=== PATIENT | female | born 1970 | race African-American/Black ===

== ENCOUNTER 2021-10-30 20:46 | Emergency (ER) | payer OTHER, SELFPAY ==
--- NOTE | ~2021-10-30 | CT_ITS ---
EXAMINATION: CT ABDOMEN AND PELVIS WITHOUT CONTRAST CLINICAL INFORMATION: Left flank pain. COMPARISON: None TECHNIQUE: Multidetector volumetric imaging was performed from the superior aspect of the liver through the pubic symphysis. Sagittal and coronal reformatted images were obtained on the technologist's workstation. This CT examination was performed using dose optimization techniques as appropriate, variously including the following: *Automated exposure control *Adjustment of mA and/or kV according to patient size (this includes techniques or standardized protocols for targeted exams where dose is matched to indication/reason for exam; i.e. extremities or head) *Use of iterative reconstruction technique DLP: 406 mGy-cm FINDINGS: LUNG BASES: The visualized lung bases are unremarkable. LIVER, GALLBLADDER, AND BILIARY TREE: Decreased attenuation of the liver parenchyma suggesting presence of hepatic steatosis. Otherwise, the liver is normal in size and shape without focal abnormalities. The gallbladder is underdistended with no pericholecystic fluid or fat stranding to suspect acute cholecystitis. There is no biliary ductal dilatation. PANCREAS: Unremarkable. SPLEEN: Unremarkable. ADRENAL GLANDS: Unremarkable. KIDNEYS AND URETERS: Mild left hydroureteronephrosis without definite obstructive stone and possibly related with a recently passed calculus. There is mild asymmetric left perinephric fat stranding. No nephrolithiasis. No right hydroureteronephrosis. BLADDER: Unremarkable. GASTROINTESTINAL TRACT: The stomach and small bowel are nondilated. No pericolic inflammatory changes. Mild sigmoid diverticulosis. No bowel obstruction. ABDOMINAL WALL: No significant hernia is appreciated. LYMPH NODES: No lymphadenopathy by size criteria. VASCULAR: Atherosclerotic disease. The abdominal aorta is of normal diameter. PELVIC VISCERA: Hysterectomy. Pelvic phleboliths. OSSEOUS STRUCTURES: No acute or aggressive appearing osseous abnormalities. Mild thoracolumbar spondylosis. CT/CT abdomen pelvis wo con IMPRESSION: Mild left hydroureteronephrosis with mild asymmetric left-sided perinephric fat stranding. No obstructing stones are identified in this examination, and findings could be related with a recently passed stone. Correlate clinically for infection. Mild sigmoid diverticulosis. Hepatic steatosis.
[2021-10-30 22:14] VITALS: BP 145/97; PULSE 91; RESP 20; TEMP 36.7; O2SAT 98; BMI 25.8
[2021-10-30] MEDS: Ibuprofen 600 MG TABLET PO (22:26)
[2021-10-30 22:27] LABS: Basophils Percent Auto 0.2 % (0-2); Eosinophils Percent Auto 0.2 % (0-4); Hematocrit 37.6 % (37.0-47.0); Hemoglobin 12.6 g/dl (12.0-16.0); Imm Gran Abs Auto 0.02 X10*3/uL (0.00-0.03); Imm Gran Pct Auto 0.2 % (0.0-0.4); Lymphocytes Absolute Auto 1.7 X10*3/uL (1.2-4.9); Lymphocytes Percent Auto 17.5 % (20-40); MANUAL DIFF FLAG NO; Mean Corpuscular HGB Conc 33.5 g/dl (31.0-35.0); Mean Corpuscular Hemoglobin 27.4 pg (27.0-33.0); Mean Corpuscular Volume 81.7 fL (80.0-98.0); Mean Platelet Volume 9.4 fL (9.4-12.3); Monocytes Absolute Auto 0.9 X10*3/uL (0.1-1.2); Monocytes Percent Auto 9.9 % (2-11); Neutrophils Absolute Auto 6.8 x10*3/uL (2.0-8.3); Platelet Count 241 X10*3/uL (160-400); Red Cell Distribution Width 13.9 % (11.0-16.0); White Blood Count 9.5 X10*3/uL (4.8-10.8)
[2021-10-30 22:47] LABS: Anion Gap 14 (12-20); Blood Urea Nitrogen 17 mg/dL (9-16); Calcium 9.7 mg/dL (8.4-10.2); Carbon Dioxide 24 mmol/L (22-29); Chloride 108 mmol/L (96-108); Estimated Glomerular Filt Rate 47; Glucose Random 112 mg/dL (60-115); Potassium 4.5 mmol/L (3.3-5.1); Sodium 141 mmol/L (135-145)
[2021-10-30 22:54] LABS: Appearance Urine CLEAR; Color Urine YELLOW; Glucose Urine UA NEG (NEG); Leukocyte Esterase Urine NEG (NEG); Nitrite Urine NEG (NEG); UACC Culture Trigger NO; Urine Blood 2+ (NEG); Urine Ketones NEG (NEG); Urine Protein NEG (NEG-TRACE)
[2021-10-30 23:02] LABS: Bacteria Urine 1+ /LPF; Squamous Epithelial Cell Urine 1+ /LPF
[2021-10-31 02:00] VITALS: BP 112/79; PULSE 78; RESP 15; TEMP 36.7; O2SAT 99
[2021-10-31 04:00] VITALS: RESP 15
--- NOTE | 2021-10-31 04:13 | ED.ABDPAIN ---
HPI - Abdominal Pain General Chief Complaint: Abdominal Pain Stated Complaint: left lank pain Time Seen by Provider: 10/30/21 23:05 Source: patient Mode of arrival: ambulatory Limitations: no limitations History of Present Illness HPI narrative: Patient comes to emergency room complaining of 1 week of left-sided flank pain. Patient states the pain is sharp, intermittent, radiating from the back towards the groin. Patient also having dysuria, denies hematuria. Patient denies fever chills. Related Data Previous Rx's Medication Instructions Recorded ketorolac 10 mg tablet 10 mg PO TID PRN 5 Days #10 tab 10/31/21 phenazopyridine 100 mg tablet 100 mg PO TID PRN 3 Days #5 tab 10/31/21 prednisone 20 mg tablet 20 mg PO DAILY #3 tab 10/31/21 Allergies Allergy/AdvReac Type Severity Reaction Status Date / Time No Known Allergies Allergy Verified 10/30/21 22:17 Review of Systems Review of Systems Constitutional : No Weight loss, No Fever, No Chills, No Night Sweats, No Fatigue, No Malaise ENT/Mouth : No Hearing loss, No Ear Pain, No Nasal Congestion, No Sinus Pain, No Hoarseness, No sore throat, No Rhinorrhea, No Swallowing Difficulty Eyes: No Eye Pain, No Swelling, No Redness, No Foreign Body, No Discharge, No Vision Changes Cardiovascular : No Chest Pain, No SOB, No Dyspnea on Exertion, No Orthopnea, No Edema, No Palpitations Respiratory : No Cough, No Sputum, No Wheezing, No Smoke Exposure, No Dyspnea Gastrointestinal : No Nausea, No Vomiting, No Diarrhea, No Constipation, No abdominal Pain, No Hematochezia, No Melena Genitourinary : no irregular bleeding, complaining of dysuria and urinary frequency, No Hematuria, No Urinary Incontinence, No Urgency, complaining of intermittent left Flank Pain, No Urinary Flow Changes, No Hesitancy Musculoskeletal : No joint pain, No Myalgias, No Joint Swelling Skin : No Skin Lesions, No rash Neuro : No Weakness, No Numbness, No Paresthesias, No Loss of Consciousness, No Dizziness, No Headache Psych : No Anxiety/Panic, No Depression, No SI/HI/AH/VH, No Social Issues, Heme/Lymph: No Bruising, No Bleeding,No Lymphadenopathy Endocrine : No Polyuria, No Polydipsia, No Temperature Intolerance [facility] Past Medical History Medical History Ureterolithiasis Social History Social History Alcohol intake: unknown Patient Tobacco Use Status: Tobacco use Unknown Use of substances other than those prescribed or required for medical reasons: Unknown Advance Directives: No Advance Directives Information Provided: No Physical Exam ED Vital Signs: Vital Signs - 24 hr 10/30/21 22:14 10/31/21 02:00 Temperature 98.1 F 98.1 F Pulse Rate 91 78 Respiratory Rate 20 15 Blood Pressure 145/97 H 112/79 Pulse Oximetry 98 99 BMI result Body Mass Index 25.8 Const Other: Appearance: Alert. Oriented X3. No acute distress. Eyes: Pupils equal, round and reactive to light. ENT: Pharynx normal. Neck: Normal inspection. Neck supple. No lymph nodes noted. No crepitus CVS: Normal heart rate and rhythm. Pulses normal. Normal S1 and S2 Respiratory: No respiratory distress. Breath sounds normal. No Wheezing. No rales Abdomen: Soft and nontender. No rigidity. No distention. Back: No flank pain Skin: Skin warm and dry. Normal skin color. Normal skin turgor. Extremities: No lower extremity edema. No Lacerations. No Rash Neuro: Oriented X 3. No motor deficit. No sensory deficit. Moving all extremities. No slurred speech. CN 2 through 12 grossly intact Psych: calm, cooperative, normal affect Course Course Course Narrative: I discussed the labs and imaging with the patient, no signs of UTI/pyelonephritis. However, it seems that patient recently passed a stone, likely had ureterolithiasis on the left side. At this time, no evidence of obstruction, no stone visualized. Patient was given 1 dose of IM Toradol for discomfort, phenazopyridine. Patient's pain likely secondary to renal colic MDM - Abdominal Pain Lab Data Result diagrams: 10/30/21 22:23 10/30/21 22:22 Labs: Lab Results 10/30/21 10/30/21 10/30/21 Range/Units 22:22 22:23 22:48 WBC 9.5 (4.8-10.8) X10*3/uL RBC 4.60 (4.20-5.50) X10*6/uL Hgb 12.6 (12.0-16.0) g/dl Hct 37.6 (37.0-47.0) % MCV 81.7 (80.0-98.0) fL MCH 27.4 (27.0-33.0) pg MCHC 33.5 (31.0-35.0) g/dl RDW 13.9 (11.0-16.0) % Plt Count 241 (160-400) X10*3/uL MPV 9.4 (9.4-12.3) fL Immature Gran % (Auto) 0.2 (0.0-0.4) % Neut % (Auto) 72.0 (45-73) % Lymph % (Auto) 17.5 L (20-40) % [place] % (Auto) 9.9 (2-11) % Eos % (Auto) 0.2 (0-4) % Baso % (Auto) 0.2 (0-2) % Lymph # (Auto) 1.7 (1.2-4.9) X10*3/uL [place] # (Auto) 0.9 (0.1-1.2) X10*3/uL Eos # (Auto) 0.0 (0.0-0.4) X10*3/uL Baso # (Auto) 0.0 (0.0-0.2) X10*3/uL Abs Immat Gran (auto) 0.02 (0.00-0.03) X10*3/uL Absolute Neuts (auto) 6.8 (2.0-8.3) x10*3/uL Absolute Nucleated RBC 0.000 (0.0-0.012) X10*3/uL Nucleated RBC % (auto) 0.0 (0.0-0.2) /100WBC Sodium 141 (135-145) mmol/L Potassium 4.5 (3.3-5.1) mmol/L Chloride 108 (96-108) mmol/L Carbon Dioxide 24 (22-29) mmol/L Anion Gap 14 (12-20) BUN 17 H (9-16) mg/dL Creatinine 1.20 (0.5-1.4) mg/dL Estim Creat Clear Calc 43.0 Estimated GFR 47 Random Glucose 112 (60-115) mg/dL Calcium 9.7 (8.4-10.2) mg/dL Urine Color YELLOW Urine Appearance CLEAR Urine pH 6.0 (5.0-8.0) Ur Specific [place] 1.010 (1.005-1.025) Urine Protein NEG (NEG-TRACE) MG/DL Urine Glucose (UA) NEG (NEG) MG/DL Urine Ketones NEG (NEG) MG/DL Urine Blood 2+ H (NEG) Urine Nitrite NEG (NEG) Ur Leukocyte Esterase NEG (NEG) Urine RBC 10-14 H (0) /HPF Urine WBC 1-4 (0-4) /HPF Ur Squamous Epith Cells 1+ /LPF Urine Bacteria 1+ /LPF Imaging Data CT scan - abdomen: Radiologist's impression: FINDINGS: LUNG BASES: The visualized lung bases are unremarkable.? LIVER, GALLBLADDER, AND BILIARY TREE: Decreased attenuation of the liver parenchyma suggesting presence of hepatic steatosis. Otherwise, the liver is normal in size and shape without focal abnormalities. The gallbladder is underdistended with no pericholecystic fluid or fat stranding to suspect acute cholecystitis. There is no biliary ductal dilatation. PANCREAS: Unremarkable.? SPLEEN: Unremarkable.? ADRENAL GLANDS: Unremarkable.? KIDNEYS AND URETERS: Mild left hydroureteronephrosis without definite obstructive stone and possibly related with a recently passed calculus. There is mild asymmetric left perinephric fat stranding. No nephrolithiasis. No right hydroureteronephrosis.? BLADDER: Unremarkable.? GASTROINTESTINAL TRACT: The stomach and small bowel are nondilated. No pericolic inflammatory changes. Mild sigmoid diverticulosis. No bowel obstruction.? ABDOMINAL WALL: No significant hernia is appreciated.? LYMPH NODES: No lymphadenopathy by size criteria. VASCULAR: Atherosclerotic disease. The abdominal aorta is of normal diameter. PELVIC VISCERA: Hysterectomy. Pelvic phleboliths.? OSSEOUS STRUCTURES: No acute or aggressive appearing osseous abnormalities. Mild thoracolumbar spondylosis.? CT/CT abdomen pelvis wo con IMPRESSION: Mild left hydroureteronephrosis with mild asymmetric left-sided perinephric fat stranding. No obstructing stones are identified in this examination, and findings could be related with a recently passed stone. Correlate clinically for infection. ? Mild sigmoid diverticulosis. ? Hepatic steatosis. Discharge Plan Discharge Clinical Impression: Kidney stone Patient Disposition: Home, Self-Care Instructions: Kidney Stones (ED), Flank Pain (ED) Additional Instructions: Please follow-up with your primary care physician tomorrow. If you have any worsening or new symptoms, please return to the emergency room or call 911 Prescriptions: New ketorolac 10 mg tablet 10 mg PO TID PRN (Reason: pain) 5 Days Qty: 10 0RF Rx Instructions: Do not use with ibuprofen/naproxen. Only use Tylenol for breakthrough pain. phenazopyridine 100 mg tablet 100 mg PO TID PRN (Reason: pain) 3 Days Qty: 5 0RF prednisone 20 mg tablet 20 mg PO DAILY Qty: 3 0RF Rx Instructions: Start 11/01/2021 Stand Alone Forms: Work/School Release
[2021-10-31] MEDS: Phenazopyridine HCL 100 MG TABLET PO (04:42)
[2021-10-31] MEDS: Ketorolac Tromethamine 60 MG/2 ML VIAL IM (04:42)
[2021-10-31] MEDS: predniSONE 20 MG TABLET PO (04:42)
== END 2021-10-31 05:10 | disposition home or self-care (01) ==
PROVIDERS: Emergency Provider Emergency Medicine
DX: N20.0 Calculus of kidney (principal); R10.9 Unspecified abdominal pain; Z79.899 Other long term (current) drug therapy
CPT/HCPCS: 36415; 74176; 80048; 81001; 85025; 99284; J1885

== ENCOUNTER 2023-03-13 10:00 | Outpatient (AMB) | payer OTHER, SELFPAY ==
--- NOTE | 2023-03-13 10:12 | A.OFFPC_ITS ---
Vital Signs 03/13/23 10:17 Height 4 ft 11 in Weight 134 lb BMI 27.1 BP 122/82 Blood Pressure Location Rt brachial Position Sitting Pulse 85 Pulse Source Pulse Oximeter Pulse Oximetry (%) 99 Oxygen Delivery Method Room Air Intake Visit Reasons: New patient-Requesting physical Intake Note: Pt is here today as a New Patient to est care/ PE Allergies No Known Allergies Allergy (Verified 03/13/23 10:40) Medication List - Last Reconciled 03/13/23 by Iris Becerra MD fexofenadine (Joan Allergy) 180 mg PO DAILY Tobacco use date assessed: 03/13/23 Dental Screening Dental Screen Date: 03/13/23 Did you have a dental visit in the last 12 months?: Yes Did you have a dental problem in the last 6 months where you did not have access to dental care?: No Was dental information given to patient?: Patient has dentist HPI New patient-Requesting physical HPI Details 52-year-old lady, new to practice, here to establish care with new PCP and for physical exam. She has history of kidney stones, currently asymptomatic, takes Joan as needed for nasal congestion/runny nose. Would like to get checked for herpes, as she states that she has been in contact with somebody who has had the disease in the past. Patient denies any skin lesions Complains of nontender lump on right upper lid which has been present now for the last several months, requesting referral to see an control systems technician to get it checked [facility] Medical History (Updated 03/13/23 @ 11:23 by Iris Becerra MD) Cutaneous skin tags Environmental and seasonal allergies Exposure to herpes History of LEEP (loop electrosurgical excision procedure) of cervix complicating History of spontaneous History of uterine fibroid Hordeolum externum right upper eyelid Hx of ectopic Irritable bowel syndrome with diarrhea Myopia Trigger finger, acquired Ureterolithiasis Surgical History (Updated 03/13/23 @ 11:13 by Iris Becerra MD) History of partial hysterectomy Hx of colonoscopy Family History (Updated 03/13/23 @ 11:16 by Iris Becerra MD) Brother Substance use disorder Mental health disorder Alcoholism Father Diabetes mellitus Hyperlipidemia Essential hypertension Mother Hyperlipidemia Essential hypertension Paternal Grandmother Diabetes mellitus Paternal Aunt Ovarian cancer Social History Housing: House Alcohol intake: unknown Patient Tobacco Use Status: Current everyday Tobacco user e-Cigarette/Vaping Use: Currently Using service: No Current occupational status: employed Cognitive needs: No Hearing needs: No Vision needs: Yes Female Reproductive History Menstrual Age of Menarche: 9 Menopause type: surgical Age of menopause: 43 Questionnaire PHQ-9 Over the last 2 weeks, how often have you been bothered by any of the following problems? 1. Little interest or pleasure in doing things: not at all 2. Feeling down, depressed, or hopeless: not at all 3. Trouble falling or staying asleep, or sleeping too much: several days 4. Feeling tired or having little energy: several days 5. Poor appetite or overeating: not at all 6. Feeling bad about yourself - or that you are a failure or have let yourself or your family down: not at all 7. Trouble concentrating on things, such as reading the newspaper or watching television: not at all 8. Moving or speaking so slowly that other people could have noticed. Or the opposite - being so fidgety or restless that you have been moving around a lot more than usual: not at all 9. Thoughts that you would be better off or of hurting yourself in some way: not at all Total score: 2 Depression Screening Interpretation: Negative 62518 - PHQ-9 Billing: Yes Source: Developed by Drs. Xavi Summers, Niyah Garcia, Edward Armas and colleagues, with an educational murray from [employer]. Thrive Questionnaire Date Thrive assessed: 03/13/23 I am a: Patient What is your living situation today?: I have a steady place to live Within the past 12 months, did the food you bought not last and you didn't have the money to get more?: Never true Within the past 12 months, did you worry whether your food would run out before you got money to buy more?: Never true Do you have trouble paying for medicines?: No Do you have trouble getting transportation to medical appointments?: No Do you have trouble paying your heating and electricity bill?: No Do you have trouble taking care of your child, family member or friend?: No Do you have trouble with day-to-day activities such as bathing, preparing meals, shopping, managing finances, etc.?: No Are you currently unemployed and looking for a job?: No Are you interested in more education?: No AUDIT C Alcohol Use Questionnaire (AUDIT-C) 1. How often do you have a drink containing alcohol?: Monthly or less 2. How many drinks containing alcohol do you have on a typical day when you are drinking?: 1 or 2 3. How often do you have six or more drinks on one occasion?: Never Total Score: 1 JONY-7 AMB Questionnaire JONY-7 Date JONY - 7 assessed: 03/13/23 Feeling nervous, anxious, or on edge: 0 = Not at all Not being able to stop or control worryin = Not at all Worrying too much about different things: 0 = Not at all Trouble relaxin = Not at all Being so restless that it is hard to sit still: 0 = Not at all Becoming easily annoyed or irritable: 0 = Not at all Feeling afraid as if something awful might happen: 0 = Not at all Total JONY-7 score (0-4 normal; 5-9 mild; 10-14 moderate; 15-21 severe): 0 Source: Developed by Drs. Xavi Summers, Niyah Garcia, Edward Armas and colleagues, with an educational murray from [employer]. JONY-7 Assessment Billing JONY-7 Assessment Tool: JONY-7 Assessment 73683 Review of Systems Const Denies body aches, Denies fatigue, Denies fever(s), Denies headache(s) and Denies weakness Eyes Denies change in vision, Denies eye discharge and Denies itchy eyes ENT Denies dizziness, Denies headache(s), Denies nasal congestion, Denies nasal discharge and Denies sore throat Card Denies chest pain, Denies lightheadedness, Denies palpitations and Denies dyspnea Resp Denies chest congestion, Denies cough, Denies dyspnea and Denies wheezing GI Denies abdominal pain, Denies change in bowel habits and Denies heartburn Denies hematuria, Denies urinary frequency, Denies dysuria and Denies urinary urgency Musc Reports no additional complaints Skin/Breast Denies breast pain, Denies breast mass, Denies lesions and Denies rash Neuro Denies dizziness, Denies headache(s) and Denies weakness Psych Reports no additional complaints Endo Denies fatigue, Denies polydipsia, Denies polyuria and Denies palpitations Kamari/Lymph Denies easy bruising Aller/Immun Denies itchy eyes, Denies seasonal rhinorrhea and Denies wheezing Physical exam (Primary Care) Vital Signs: Last Vital Signs Pulse 85 03/13/23 10:17 BP 122/82 03/13/23 10:17 Pulse Ox 99 03/13/23 10:17 Oxygen Delivery Method Room Air 03/13/23 10:17 BMI result Body Mass Index 27.1 Tobacco/Smoking Status: Tobacco use Status Tobacco use date assessed 03/13/23 03/13/23 10:18 Patient Tobacco Use Status Current everyday Tobacco 03/13/23 10:37 e-Cigarette/Vaping Use Currently Using 03/13/23 10:37 PHQ-9: PHQ-9 Score PHQ-9: Total score 2 03/13/23 11:29 Depression Screening Interpretation: Negative Thrive Assessment: Date of Thrive Assessment Date Thrive assessed 03/13/23 03/13/23 10:37 Const General: healthy appearing, comfortable and no acute distress Nutritional Appearance: average body habitus Orientation/consciousness: patient oriented x3 Limitations: no limitations HENMT Head: Yes normocephalic and Yes atraumatic Ears: external ears normal, TM's normal bilaterally and EAC's normal General nose exam: Normal external nose present Face and sinus: Yes face symmetric Mouth: Normal oral and palatal mucosa present, tongue normal, oropharynx normal and moist mucous membranes Eyes Other: Slightly raced mass on upper lid, right, nontender to palpation General: appearance normal, both eyes and all related structures Alignment and Position: alignment normal Conjunctivae: conjunctivae normal Sclerae: sclerae normal Pupils: Equal, round and reactive pupils present EOM: EOMs intact bilaterally Neck Neck: Yes full ROM, Yes no lymphadenopathy and Yes supple Thyroid: other (Nonpalpable thyroid) Chest Chest palpation & inspection: normal inspection of the chest Breast/axilla inspection: normal inspection of the breasts Breast/axilla palpation: normal palpation of the breasts Resp Effort & Inspection: normal respiratory effort and able to speak in complete sentences Auscultation: clear to auscultation bilaterally Cardio Rate: regular rate Rhythm: regular rhythm Heart sounds: S1 normal heart sound present and S2 normal heart sound present GI Inspection: Yes obesity Palpation (GI): Soft to palpation, nontender, no guarding and no masses Auscultation: normal bowel sounds General: Yes no CVA tenderness Back/Spine/Pelvis Back: no CVA tenderness and No back tenderness Skin Other: Skin tags on neck General skin exam: no rashes or lesions noted Neuro General: patient oriented x3, gait normal, tone normal, moves all extremities, Normal light touch and pain sensation, no focal motor deficits and CN's II-XI intact bilaterally Cranial nerves: Yes Equal, round and reactive pupils present Cognition (Neuro): normal cognition Gait exam (Neuro): Normal gait present Motor exam (neuro): 5/5 motor strength present throughout Psych Appearance: grossly normal and well kempt Mental Status: mental status grossly normal Speech and movement: Normal speech and movement present Affect: normal affect Attitude: cooperative Thought process: Normal thought process present Thought content: Normal thought content present Assessment and Plan Assessment & Plan (1) Environmental and seasonal allergies: Code(s): J30.89 - Other allergic rhinitis Plan: Currently taking fexofenadine as needed (2) Annual visit for general adult medical examination with abnormal findings: Code(s): Z00.01 - Encounter for general adult medical examination with abnormal findings Plan: Will check appropriate labs. Recommended dental visit every 6 months and regular eye exams, at least every 2 years. Take adequate calcium in diet and vitamin-D 3 at 2000 IU per cap once a day, in addition to weight-bearing exercises to help maintain good muscle tone and weight control. Instructed to do self-breast exam, and recommended to get yearly mammogram, referred for screening mammogram. She has had her COVID vaccines but has but reminded to get her booster, as well as her shingles vaccination, gets yearly flu shots, and up-to-date with Tdap. Patient also states that she had a screening colonoscopy done in [place] in 2018 which came back benign (3) Irritable bowel syndrome with diarrhea: Code(s): K58.0 - Irritable bowel syndrome with diarrhea Plan: Increase diet Monika fiber intake, get regular exercise. (4) Fatigue: Code(s): R53.83 - Other fatigue Plan: Will check CBC, TSH and free T4, vitamin-D level and electrolytes (5) Exposure to herpes: Code(s): Z20.828 - Contact with and (suspected) exposure to other viral communicable diseases Plan: Will check herpes simplex virus antibodies (6) Cutaneous skin tags: Code(s): L91.8 - Other hypertrophic disorders of the skin Plan: Referred to general surgery for possible excision of painful skin tags on neck (7) Hordeolum externum right upper eyelid: Code(s): H00.011 - Hordeolum externum right upper eyelid Plan: Referred to ophthalmology (8) Myopia: Code(s): H52.10 - Myopia, unspecified eye Plan: Referred to ophthalmology Orders: Orders Alanine Aminotransferase 03/13/23 J30.89 - Other allergic rhinitis, Z00.01 - Encounter for general adult medical examination with abnormal findings Aspartate Amino Transferase 03/13/23 J30.89 - Other allergic rhinitis, Z00. - Encounter for general adult medical examination with abnormal findings Basic Metabolic Panel Fasting 03/13/23 J.89 - Other allergic rhinitis, Z00. - Encounter for general adult medical examination with abnormal findings Lipid Panel 03/13/23.89 - Other allergic rhinitis, Z00. - Encounter for general adult medical examination with abnormal findings Vitamin D 25-OH Total 03/13/23.89 - Other allergic rhinitis, Z00. - Encounter for general adult medical examination with abnormal findings UA CC w/rflx Micro + Cult 03/13/23. - Other allergic rhinitis, Z00.01 - Encounter for general adult medical examination with abnormal findings MM screening mammo BI 03/13/23 Z12.31 - Encounter for screening mammogram for malignant neoplasm of breast TSH reflex Free T4 03/13/23 K58.0 - Irritable bowel syndrome with diarrhea, R53.83 - Other fatigue Herpes Simplex Virus Ab IgG 03/13/23 Z20.828 - Contact with and (suspected) exposure to other viral communicable diseases Referrals General Surgery Referral L91.8 - Other hypertrophic disorders of the skin Ophthalmology Referral H00.011 - Hordeolum externum right upper eyelid, H52.10 - Myopia, unspecified eye Coding Level of Care Code New Pt Prev Care 40-64y(98143) Diagnoses Environmental and seasonal allergies J30.89 Annual visit for general adult medical examination with abnormal findings Z00.01 Irritable bowel syndrome with diarrhea K58.0 Fatigue R53.83 Exposure to herpes Z20.828 Cutaneous skin tags L91.8 Hordeolum externum right upper eyelid H00.011 Myopia H52.10 Additional Codes JONY-7 Assessment Billing - JONY-7 Assessment Tool: JONY-7 Assessment [id number] ([id number])
[2023-03-13 10:17] VITALS: BP 122/82; PULSE 85; O2SAT 99; BMI 27.1
== END 2023-03-13 11:41 | disposition home or self-care (01) ==
PROVIDERS: Visit Provider Internal Medicine
DX: J30.89 Other allergic rhinitis (principal); Z00.01 Encounter for general adult medical examination with abnormal findings; K58.0 Irritable bowel syndrome with diarrhea; R53.83 Other fatigue; Z20.828 Contact with and (suspected) exposure to other viral communicable diseases; L91.8 Other hypertrophic disorders of the skin; H00.011 Hordeolum externum right upper eyelid; H52.10 Myopia, unspecified eye
CPT/HCPCS: 99386

== ENCOUNTER 2023-03-19 07:47 | Outpatient (REF) | payer OTHER, SELFPAY ==
[2023-03-19 11:30] LABS: Appearance Urine Turbid; Color Urine Yellow; Glucose Urine UA Negative (Negative); Leukocyte Esterase Urine Negative (Negative); Nitrite Urine Negative (Negative); PH 5.5 (5.0-9.0); Specific Gravity - Urine 1.025 (1.005-1.025); Urine Blood Negative (Negative); Urine Ketones Negative (Negative); Urine Protein Negative (Neg-Trace)
[2023-03-19 12:10] LABS: Alanine Aminotransferase 25 U/L (0-31); Anion Gap 16 (12-20); Aspartate Amino Transferase 20 U/L (5-31); Blood Urea Nitrogen 11 mg/dL (9-16); Calcium 9.8 mg/dL (8.4-10.2); Carbon Dioxide 22 mmol/L (22-29); Chloride 109 mmol/L (96-108); Cholesterol 278 mg/dL; Estimated Glomerular Filt Rate > 60; Glucose Fasting 101 mg/dL (60-99); HDL Cholesterol 41 mg/dL; LDL Cholesterol Calculated 184 mg/dl; Potassium 4.6 mmol/L (3.3-5.1); Sodium 142 mmol/L (135-145); Triglycerides 268 mg/dL
[2023-03-19 12:32] LABS: Vitamin D 25-OH Total 20.3 ng/mL (>30)
== END 2023-03-19 07:48 | disposition home or self-care (01) ==
LOC: HO.HMGCLDS 07:47
PROVIDERS: PCP Internal Medicine; Visit Provider Internal Medicine
DX: Z00.01 Encounter for general adult medical examination with abnormal findings (principal); J30.89 Other allergic rhinitis; K58.0 Irritable bowel syndrome with diarrhea; R53.83 Other fatigue; Z20.828 Contact with and (suspected) exposure to other viral communicable diseases
CPT/HCPCS: 36415; 80048; 80061; 81003; 82306; 84443; 84450; 84460; 86695; 86696

== ENCOUNTER 2023-03-27 09:22 | Outpatient (AMB) | payer OTHER, SELFPAY ==
--- NOTE | 2023-03-27 09:27 | MHC.OFFVIS ---
Intake Vital Signs 03/27/23 09:35 Height 4 ft 11 in Weight 136 lb 2 oz BMI 27.5 BP 137/80 Blood Pressure Location Lt brachial Position Sitting Pulse 84 Intake Visit Reasons: skin lesion of the neck Intake Note: Patient is seen in office for evaluation of a skin lesion of the neck. Pt c/o: onset for yrs, had multiple in the past that been removed (benign), admits to discharge, denies discharge, redness, discoloration Correspondence Specialist Required: No Accompanied by: Other Relationship Allergies No Known Allergies Allergy (Verified 03/27/23 09:34) Medication List - Last Reconciled 03/27/23 by Quique Jurado MD cholecalciferol (vitamin D3) 1,250 mcg PO QWEEK 3 months fexofenadine ([facility]) 180 mg PO DAILY rosuvastatin 5 mg PO DAILY HPI HPI Comments History of Present Illness Details 52-year-old female patient presenting with an irritated skin lesion located on the left neck which is causing increased pain. She denies bleeding or discharge but feels the lesion is increasing in size changing in color. She has requested excision of this irritated lesion. She has several smaller lesions on the right neck which have also started to increase in size and causing mild discomfort. [facility] Medical History Cutaneous skin tags Environmental and seasonal allergies Exposure to herpes History of LEEP (loop electrosurgical excision procedure) of cervix complicating History of spontaneous History of uterine fibroid Hordeolum externum right upper eyelid Hx of ectopic Impaired fasting glucose Irritable bowel syndrome with diarrhea Mixed dyslipidemia Myopia Trigger finger, acquired Ureterolithiasis Vitamin D deficiency Surgical History History of partial hysterectomy Hx of colonoscopy Family History Brother Substance use disorder Mental health disorder Alcoholism Father Diabetes mellitus Hyperlipidemia Essential hypertension Mother Hyperlipidemia Essential hypertension Paternal Grandmother Diabetes mellitus Paternal Aunt Ovarian cancer Social History Housing: House Alcohol intake: unknown Patient Tobacco Use Status: Current everyday Tobacco user e-Cigarette/Vaping Use: Currently Using service: No Current occupational status: employed Cognitive needs: No Hearing needs: No Vision needs: Yes Female Reproductive History Menstrual Age of Menarche: 9 Review of Systems Const All systems reviewed & are unremarkable except as noted in HPI and below Denies chills, Denies fever(s), Denies headache(s), Denies poor appetite and Denies weakness ENT Denies headache(s) Card Denies chest pain, Denies irregular heart rhythm, Denies palpitations and Denies dyspnea Resp Denies cough, Denies excessive phlegm production and Denies dyspnea GI Denies abdominal pain, Denies bloating, Denies change in bowel habits, Denies constipation, Denies heartburn, Denies diarrhea, Denies nausea and Denies vomiting Denies urinary frequency Musc Denies back pain, Denies muscle weakness and Denies numbness Skin/Breast Reports as per HPI, Denies changing lesions and Denies unusual bruising Neuro Denies headache(s), Denies numbness, Denies paresthesias and Denies weakness Psych Denies anxiety and Denies depression Endo Denies palpitations Kamari/Lymph Denies lymphadenopathy Physical Exam Vital Signs: Last Vital Signs Pulse 84 03/27/23 09:35 BP 137/80 03/27/23 09:35 BMI result Body Mass Index 27.5 Const General: cooperative and no acute distress Nutritional Appearance: well nourished Orientation/consciousness: patient oriented x3 Limitations: no limitations HEENT Head: Yes normocephalic and Yes atraumatic Ears: hearing grossly normal bilaterally Neck Other: Dark raised skin lesion located in the left neck measuring approximately 3 mm in diameter. No ulceration or bleeding is identified. A 2nd lesion in the right neck measures about 2 mm and is flat the skin again with dark/black change in color. Margins appear symmetrical. No ulceration or bleeding is appreciated. Neck images: 1. 2. Resp Effort & Inspection: normal respiratory effort, no audible wheezes, no cough and no respiratory distress Cardio Jugular venous distension: no JVD GI Inspection: Yes normal to inspection Skin Other: Warm, dry, no rash Lesions as noted in neck above. Neuro General: patient oriented x3 Extrem General: Yes no clubbing, cyanosis or edema Assessment & Plan Assessment & Plan (1) Pigmented skin lesion of uncertain behavior of neck: Code(s): L81.9 - Disorder of pigmentation, unspecified Plan 52-year-old female patient presenting with bilateral skin lesions of the neck which are increasing in size changing in color. I recommended an excision under local anesthesia which can be performed as an office procedure. After discussion of the procedure, risks, and alternatives, she consents to the surgery. Coding Level of Care Code New Pt Level 4 (26387) Diagnoses Pigmented skin lesion of uncertain behavior of neck L81.9
[2023-03-27 09:35] VITALS: BP 137/80; PULSE 84; BMI 27.5
== END 2023-03-27 09:50 | disposition home or self-care (01) ==
PROVIDERS: PCP Internal Medicine; Referring Provider Internal Medicine; Visit Provider Surgery
DX: L81.9 Disorder of pigmentation, unspecified (principal)
CPT/HCPCS: 99204

== ENCOUNTER → 2023-03-27 09:22 | Outpatient (BNVA) | payer OTHER, SELFPAY | PROVIDERS: PCP Internal Medicine; Referring Provider Internal Medicine; Visit Provider Surgery | DX: L81.9 Disorder of pigmentation, unspecified (principal) | CPT/HCPCS: 99202 ==

== ENCOUNTER 2023-04-06 10:29 | Outpatient (AMB) | payer OTHER, SELFPAY ==
[2023-04-06 11:07] VITALS: BP 112/74; PULSE 78; TEMP 36.2; O2SAT 100; BMI 26.5
--- NOTE | 2023-04-06 11:07 | AM.OFFWIN_ITS ---
Intake Vital Signs 04/06/23 11:07 Height 4 ft 11 in Weight 131 lb 2 oz BMI 26.5 BP 112/74 Blood Pressure Location Lt brachial Position Sitting Pulse 78 Pulse Source Pulse Oximeter Temp 97.1 F Temp Source Temporal Artery Scan Pulse Oximetry (%) 100 Oxygen Delivery Method Room Air Intake Visit Reasons: EST/body aches,[id number] Intake Note: Pt is here c/o body aches and weakness for the last six days. Patient Tobacco Use Status: Current everyday Tobacco user Allergies No Known Allergies Allergy (Verified 04/06/23 11:07) Do you need a note to return to daycare/school/sports/work: Yes HPI HPI Comments History of Present Illness Details This is a 52-year-old female with past medical history significant for hyperlipidemia, prediabetes, and tobacco use who presents to the office today for sick visit. Patient complaining of generalized weakness, fatigue, and diffuse myalgias x6 days. Patient denies any specific infectious symptoms including cough, congestion, rhinorrhea, dysuria, urinary frequency/urgency, rashes, abdominal pain, nausea/vomiting/diarrhea. Upon further questioning, patient does admit to intermittent chest pressure with associated shortness of breath that started just prior to her weakness and fatigue. She states she gets episodes of left-sided chest pressure with occasional radiation into her neck associated with shortness of breath. These episodes last for several seconds and then gradually dissipate without intervention. She has not noticed any specific triggers or patterns to this chest pressure. She denies any radiation into her arm or jaw. She denies associated nausea/vomiting or diaphoresis. [facility] Medical History Cutaneous skin tags Environmental and seasonal allergies Exposure to herpes History of LEEP (loop electrosurgical excision procedure) of cervix complicating History of spontaneous History of uterine fibroid Hordeolum externum right upper eyelid Hx of ectopic Impaired fasting glucose Irritable bowel syndrome with diarrhea Mixed dyslipidemia Myopia Trigger finger, acquired Ureterolithiasis Vitamin D deficiency Surgical History History of partial hysterectomy Hx of colonoscopy Family History Brother Substance use disorder Mental health disorder Alcoholism Father Diabetes mellitus Hyperlipidemia Essential hypertension Mother Hyperlipidemia Essential hypertension Paternal Grandmother Diabetes mellitus Paternal Aunt Ovarian cancer Social History Housing: House Alcohol intake: unknown Patient Tobacco Use Status: Current everyday Tobacco user e-Cigarette/Vaping Use: Currently Using service: No Current occupational status: employed Cognitive needs: No Hearing needs: No Vision needs: Yes Female Reproductive History Menstrual Age of Menarche: 9 Review of Systems Const All systems reviewed & are unremarkable except as noted in HPI and below Reports no additional complaints, Reports fatigue, Reports malaise and Reports weakness Eyes Reports no additional complaints ENT Reports no additional complaints Card Reports no additional complaints, Reports chest pain and Reports dyspnea Resp Reports no additional complaints and Reports dyspnea GI Reports no additional complaints Reports no additional complaints Musc Reports no additional complaints Skin/Breast Reports system reviewed and no additional complaints, except as documented Neuro Reports no additional complaints, Denies Abnormal speech present and Reports weakness Psych Reports no additional complaints Endo Reports no additional complaints and Reports fatigue Kamari/Lymph Reports no additional complaints Aller/Immun Reports no additional complaints Physical Exam Vital Signs: Last Vital Signs Temp 97.1 F 04/06/23 11:07 Pulse 78 04/06/23 11:07 BP 112/74 04/06/23 11:07 Pulse Ox 100 04/06/23 11:07 Oxygen Delivery Method Room Air 04/06/23 11:07 BMI result Body Mass Index 26.5 Const General: cooperative, healthy appearing, no acute distress and well developed Nutritional Appearance: well nourished Orientation/consciousness: patient oriented x3 HEENT Head: Yes normal to inspection Ears: hearing grossly normal bilaterally General nose exam: Normal external nose present Face and sinus: Yes normal facial exam Mouth: Normal oral and palatal mucosa present Throat: Yes posterior oropharynx normal Eyes General: appearance normal, both eyes and all related structures Eyelids: Yes eyelids normal Conjunctivae: conjunctivae normal Sclerae: sclerae normal Pupils: Equal, round and reactive pupils present EOM: EOMs intact bilaterally Neck Neck: Yes no meningeal signs Resp Effort & Inspection: normal respiratory effort and no respiratory distress Auscultation: clear to auscultation bilaterally, no crackles, no rales, no rhonchi and no wheezes Cardio Jugular venous distension: no JVD Rate: regular rate Rhythm: regular rhythm Heart sounds: S1 normal heart sound present, S2 normal heart sound present, no gallops, no murmurs and no rubs Peripheral pulses: Peripheral pulses 2+ throughout GI Inspection: No distended Palpation (GI): Soft to palpation and nontender Auscultation: normal bowel sounds Skin General skin exam: no rashes or lesions noted Neuro General: patient oriented x3, moves all extremities and no meningeal signs Cranial nerves: Yes CN's II-XII intact bilaterally and Yes Equal, round and reactive pupils present Cognition (Neuro): normal cognition Speech: No Abnormal speech present Gait exam (Neuro): Normal gait present Motor exam (neuro): 5/5 motor strength present throughout Extrem General: Yes normal to inspection, Yes full ROM and Yes no clubbing, cyanosis or edema Psych Appearance: grossly normal Mental Status: mental status grossly normal Assessment & Plan Assessment & Plan (1) Fatigue: Code(s): R53.83 - Other fatigue (2) Weakness: Code(s): R53.1 - Weakness (3) Chest pressure: Code(s): R07.89 - Other chest pain (4) Shortness of breath: Code(s): R06.02 - Shortness of breath Plan This is a 52-year-old female with past medical history significant for dyslipidemia, prediabetes, and active tobacco use disorder who presented to the walk-in clinic complaining of generalized weakness, fatigue, and myalgias. Patient initially denied any specific infectious symptoms but upon further questioning, she did admit to having intermittent chest pressure and shortness of breath, which began around the same time as her weakness and fatigue. Patient does have significant risk factors for cardiac disease including dyslipidemia, prediabetes, and tobacco use. EKG was obtained in the office, which showed normal sinus rhythm without acute ischemic changes or ST T wave changes. However, given patient's risk factors and complains of intermittent chest pressure/shortness of breath, I advised patient to proceed directly to the emergency room for further evaluation and management. An ambulance was offered, but patient adamantly declined and states that her will drive her to the ER. Patient has a competence to make her own medical decisions and she understands the risks of not proceeding directly to the emergency room. Patient is proceeding directly to the emergency room at this time. Orders: Orders COVID-19 ID NOW (Ying) Today R53.1 - Weakness AMB EKG-In Office Today R07.89 - Other chest pain SARS-CoV2/FLU/RSV Today R09.89 - Other specified symptoms and signs involving the circulatory and respiratory systems Coding Level of Care Code Est Pt Level 4 (28143) Diagnoses Fatigue R53.83 Weakness R53.1 Chest pressure R07.89 Shortness of breath R06.02
== END 2023-04-06 12:14 | disposition home or self-care (01) ==
PROVIDERS: PCP Internal Medicine; Visit Provider Physician Assistant Medical
DX: R53.83 Other fatigue (principal); R53.1 Weakness; R07.89 Other chest pain; R06.02 Shortness of breath
CPT/HCPCS: 93000; 99214

== ENCOUNTER 2023-04-06 12:27 | Emergency (ER) | payer OTHER, SELFPAY ==
--- NOTE | ~2023-04-06 | XR_ITS ---
EXAMINATION: XR CHEST CLINICAL INFORMATION: Chest pain. COMPARISON: None available. TECHNIQUE: 2 views of the chest were obtained. FINDINGS: No significant abnormality is noted involving the heart, lungs, mediastinum, bony thorax or soft tissues. XR/XR chest 2V IMPRESSION: No acute cardiopulmonary process.
--- NOTE | 2023-04-06 12:29 | ECG_ITS ---
Test Reason : cp Blood Pressure : / mmHG Vent. Rate : 072 BPM Atrial Rate : 072 BPM P-R Int : 172 ms QRS Dur : 074 ms QT Int : 364 ms P-R-T Axes : 045 002 032 degrees QTc Int : 398 ms Normal sinus rhythm Possible Left atrial enlargement Minimal voltage criteria for LVH, may be normal variant ( R in aVL ) Borderline ECG No previous ECGs available Referred By: Marcella Vital Electronically Signed By:REJI CALLAHAN
[2023-04-06 12:30] VITALS: BP 147/93; PULSE 73; RESP 19; TEMP 36.6; O2SAT 97; BMI 26.7
--- NOTE | 2023-04-06 12:31 | ED_ITS ---
HPI - General Adult General Chief complaint: Chest Pain Stated complaint: chest pain Time Seen by Provider: 04/06/23 15:51 Source: patient Mode of arrival: ambulatory Limitations: no limitations History of Present Illness HPI narrative: Patient is a 52 year old assigned female at with a history of IBS presenting to the emergency department today with chest pain and body aches. Patient states that over the last 6 days she has had chest pain and intermittent body aches. Patient denies any dizziness, lightheadedness, abdominal pain, nausea, vomiting, fever, chills, blurry vision, double vision, loss of vision, difficulty breathing, shortness of breath, back pain, night sweats, pain with urination, increased urinary frequency, increased urinary urgency, blood in her urine or stool, syncope or a near syncopal episode, recent trauma or falls, bowel incontinence, bladder incontinence, bowel retention, bladder retention, or any other complaints at this time. Onset (ago): day(s) (6) Location: chest Severity: mild Severity scale (1-10): 3 Quality: aching and dull Pain Consistency: constant Relieving factors: none Exacerbating factors: none Associated symptoms: denies other symptoms Treatments prior to arrival: none Related Data Home Medications Medication Instructions Recorded Confirmed fexofenadine 180 mg tablet 180 mg PO DAILY 03/13/23 03/13/23 (Joan Allergy) Previous Rx's Medication Instructions Recorded cholecalciferol (vitamin D3) 1,250 1,250 mcg PO QWEEK 3 months #13 03/20/23 mcg (50,000 unit) capsule caps rosuvastatin 5 mg tablet 5 mg PO DAILY #90 tabs 03/20/23 Allergies Allergy/AdvReac Type Severity Reaction Status Date / Time No Known Allergies Allergy Verified 04/06/23 12:30 Review of Systems Constitutional: Constitutional: Reports no additional constitutional complaints, Reports body ache(s), Denies chills, Denies fever(s) and Denies night sweats Eyes: Eyes: Reports no additional eye complaints, Denies blurry vision, Denies change in vision, Denies diplopia, Denies eye discharge, Denies loss of vision and Denies eye pain ENT: Denies dizziness Cardiovascular: Cardiovascular: Reports no additional cardiovascular complaints, Reports chest pain, Denies lightheadedness, Denies Loss of Consciousness and Denies dyspnea Respiratory: Respiratory: Reports no additional respiratory complaints and De nies dyspnea Gastrointestinal: Gastrointestinal: Reports no additional gastrointestinal complaints, Denies abdominal pain, Denies melena, Denies hematochezia, Denies change in bowel habits and Denies change in stool character Genitourinary: Genitourinary: Denies hematuria, Denies urinary frequency, Denies dysuria, Denies urinary incontinence, Denies urinary hesitancy and Denies urinary urgency Musculoskeletal: Musculoskeletal: Reports no additional musculoskeletal complaints, Denies numbness and Denies tingling Neurologic: Denies dizziness, Denies loss of vision, Denies numbness and Denies tingling Psychiatric: Psychiatric: Reports no additional psychiatric complaints Endocrine: Endocrine: Reports no additional endocrine complaints Hematologic/Lymphatic: Hematologic/Lymphatic: Reports no additional hematologic/lymphatic complaints Allergic/Immunologic: Allergic/Immunologic: Reports no additional allergic/immunologic complaints PMFSH Past Medical History Attestation statement: The following information was validated with the patient. Source: old records reviewed and nursing notes reviewed Medical History Cutaneous skin tags Environmental and seasonal allergies Exposure to herpes History of LEEP (loop electrosurgical excision procedure) of cervix complicating History of spontaneous History of uterine fibroid Hordeolum externum right upper eyelid Hx of ectopic Impaired fasting glucose Irritable bowel syndrome with diarrhea Mixed dyslipidemia Myopia Trigger finger, acquired Ureterolithiasis Vitamin D deficiency Surgical History History of partial hysterectomy Hx of colonoscopy Family History Family History Brother Substance use disorder Mental health disorder Alcoholism Father Diabetes mellitus Hyperlipidemia Essential hypertension Mother Hyperlipidemia Essential hypertension Paternal Grandmother Diabetes mellitus Paternal Aunt Ovarian cancer Social History Social History Housing: House Alcohol intake: unknown Patient Tobacco Use Status: Current everyday Tobacco user e-Cigarette/Vaping Use: Currently Using service: No Current occupational status: employed Cognitive needs: No Hearing needs: No Vision needs: Yes Physical Exam ED Vital Signs: Vital Signs - 24 hr 04/06/23 12:30 Temperature 98 F Pulse Rate 73 Respiratory Rate 19 Blood Pressure 147/93 H Pulse Oximetry 97 BMI result Body Mass Index 26.7 Const General: cooperative, no acute distress, alert and awake Nutritional Appearance: well nourished Orientation/consciousness: patient oriented x3 Limitations: no limitations HENMT Head: Yes normal to inspection and Yes atraumatic Ears: hearing grossly normal bilaterally and external ears normal General nose exam: Normal external nose present, no nasal discharge noted and no epistaxis Face and sinus: Yes normal facial exam, No abrasion and No laceration Mouth: Normal oral and palatal mucosa present, no drooling and no muffled voice Eyes General: appearance normal, both eyes and all related structures Periorbital: periorbital findings normal Eyelids: Yes eyelids normal Conjunctivae: conjunctivae normal Pupils: Equal, round and reactive pupils present EOM: EOMs intact bilaterally Neck Neck: Yes normal visual inspection, Yes full ROM and Yes no lymphadenopathy Chest Chest palpation & inspection: normal inspection of the chest Resp Effort & Inspection: normal respiratory effort and able to speak in complete sentences GI Inspection: Yes normal to inspection Neuro General: patient oriented x3 and moves all extremities Cranial nerves: Yes Equal, round and reactive pupils present Cognition (Neuro): normal cognition Motor exam (neuro): 5/5 motor strength present throughout Sensory Exam: Normal double simultaneous stimulation for sensation Coordination: [id number] test normal Extrem General: Yes normal to inspection, Yes full ROM and Yes capillary refill normal Psych Appearance: grossly normal Mental Status: mental status grossly normal Affect: normal affect Attitude: cooperative Thought process: Normal thought process present Thought content: Normal thought content present Insight: Good insight present (Psych) Course Course Course Narrative: RME performed by Marcella Vital PA-C. Patient is a 52 year old assigned female at presenting to the emergency department with body aches, chest pain, and feeling generally unwell. Labs and swab ordered. Patient placed back in the waiting room pending room availability and results. Medical Decision Making Medical Decision Making MDM Narrative: Patient is a 52 year old assigned female at with no reported medical history presenting to the emergency department today with chest pain and body aches. Patient's limited physical exam performed in triage was unremarkable. Patient's blood work was unremarkable. Patient's urine showed no acute process. Patient's EKG was unremarkable. Patient's chest x-ray showed no acute process. Patient eloped from the department before myself or any of the other emergency department providers could explain her physical exam findings, lab results, need or lack there of for further testing, or any treatment options / treatment plans. Differential Diagnosis Differential Diagnoses: The differential diagnosis associated with the presentation includes STEMI NSTEMI Chest pain COVID-19 Admission/Observation Consideration of admission/observation: Escalation of care including admission/observation considered Patient would have been admitted to the hospital had her work up had any findings where hospital admission was appropriate, her clinical presentation warranted hospital admission, and she had not eloped from the department. Lab Data MDM Lab Attestation statement: I reviewed the patient's lab results. My interpretation of these studies and their corresponding values is that they are grossly normal. 04/06/23 12:47 04/06/23 12:47 Labs: Lab Results 04/06/23 04/06/23 04/06/23 Range/Units 12:47 12:47 12:47 WBC 7.8 (4.8-10.8) X10*3/uL RBC 5.21 (4.20-5.50) X10*6/uL Hgb 14.4 (12.0-16.0) g/dl Hct 40.2 (37.0-47.0) % MCV 77.2 L (80.0-98.0) fL MCH 27.6 (27.0-33.0) pg MCHC 35.8 H (31.0-35.0) g/dl RDW 13.7 (11.0-16.0) % Plt Count 276 (160-400) X10*3/uL MPV 9.6 (9.4-12.3) fL Immature Gran % (Auto) Cancelled Neut % (Auto) Cancelled Lymph % (Auto) Cancelled [place] % (Auto) Cancelled Eos % (Auto) Cancelled Baso % (Auto) Cancelled Lymph # (Auto) Cancelled [place] # (Auto) Cancelled Eos # (Auto) Cancelled Baso # (Auto) Cancelled Abs Immat Gran (auto) Cancelled Absolute Neuts (auto) Cancelled Absolute Nucleated RBC 0.000 (0.0-0.012) X10*3/uL Nucleated RBC % (auto) 0.0 (0.0-0.2) /100WBC Neutrophils % (Manual) 54 (45-73) % Band Neutrophils % 0 L (3-5) % Lymphocytes % (Manual) 39 (20-40) % Monocytes % (Manual) 7 (2-11) % Abs Neuts (Manual) 4.2 (2.0-8.3) X10*3/uL Lymphocytes # (Manual) 3.0 (1.2-4.9) X10*3/uL Monocytes # (Manual) 0.5 (0.1-1.2) X10*3/uL Platelet Estimate NORMAL (NORMAL) Plt Morphology Comment NORMAL RBC Morphology NOTED Hypochromasia 1+ (5-14) /OIF Microcytosis 1+ (5-14) /OIF Sodium 138 (135-145) mmol/L Potassium 4.6 (3.3-5.1) mmol/L Chloride 103 (96-108) mmol/L Carbon Dioxide 26 (22-29) mmol/L Anion Gap 14 (12-20) BUN 9 (9-16) mg/dL Creatinine 0.86 (0.5-1.4) mg/dL Estim Creat Clear Calc 60.3 Estimated GFR > 60 Random Glucose 114 (60-115) mg/dL Calcium 11.0 H D (8.4-10.2) mg/dL Magnesium 2.2 (1.6-2.6) mg/dL Total Bilirubin 0.4 (0.0-1.0) mg/dL AST 22 (5-31) U/L ALT 24 (0-31) U/L Alkaline Phosphatase 52 (39-117) U/L Troponin I High Sens (<3.5-17.0) ng/L Total Protein 8.2 H (6.5-8.0) g/dL Albumin 4.7 (3.5-5.0) g/dL COVID-19 (FELIBERTO) Negative (Negative) COVID-19 Clin Com See Note 04/06/23 Range/Units 12:47 WBC (4.8-10.8) X10*3/uL RBC (4.20-5.50) X10*6/uL Hgb (12.0-16.0) g/dl Hct (37.0-47.0) % MCV (80.0-98.0) fL MCH (27.0-33.0) pg MCHC (31.0-35.0) g/dl RDW (11.0-16.0) % Plt Count (160-400) X10*3/uL MPV (9.4-12.3) fL Immature Gran % (Auto) Neut % (Auto) Lymph % (Auto) [place] % (Auto) Eos % (Auto) Baso % (Auto) Lymph # (Auto) [place] # (Auto) Eos # (Auto) Baso # (Auto) Abs Immat Gran (auto) Absolute Neuts (auto) Absolute Nucleated RBC (0.0-0.012) X10*3/uL Nucleated RBC % (auto) (0.0-0.2) /100WBC Neutrophils % (Manual) (45-73) % Band Neutrophils % (3-5) % Lymphocytes % (Manual) (20-40) % Monocytes % (Manual) (2-11) % Abs Neuts (Manual) (2.0-8.3) X10*3/uL Lymphocytes # (Manual) (1.2-4.9) X10*3/uL Monocytes # (Manual) (0.1-1.2) X10*3/uL Platelet Estimate (NORMAL) Plt Morphology Comment RBC Morphology Hypochromasia /OIF Microcytosis /OIF Sodium (135-145) mmol/L Potassium (3.3-5.1) mmol/L Chloride (96-108) mmol/L Carbon Dioxide (22-29) mmol/L Anion Gap (12-20) BUN (9-16) mg/dL Creatinine (0.5-1.4) mg/dL Estim Creat Clear Calc Estimated GFR Random Glucose (60-115) mg/dL Calcium (8.4-10.2) mg/dL Magnesium (1.6-2.6) mg/dL Total Bilirubin (0.0-1.0) mg/dL AST (5-31) U/L ALT (0-31) U/L Alkaline Phosphatase (39-117) U/L Troponin I High Sens < 2.7 (<3.5-17.0) ng/L Total Protein (6.5-8.0) g/dL Albumin (3.5-5.0) g/dL COVID-19 (FELIBERTO) (Negative) COVID-19 Clin Com Independent Interpretation I performed an independent interpretation of an: EKG and Plain X-Ray Interpretation: My interpretation is in agreement with the radiologist's impression of this imaging study. EXAMINATION: XR CHEST CLINICAL INFORMATION: Chest pain. COMPARISON: None available. TECHNIQUE: 2 views of the chest were obtained. FINDINGS: No significant abnormality is noted involving the heart, lungs, mediastinum, bony thorax or soft tissues. XR/XR chest 2V IMPRESSION: No acute cardiopulmonary process. Dictated By: Torsten Zhao MD Signed By: Electronically signed by Torsten Zhao MD 04/06/23 1327 Vent. Rate: 072 BPM ? ? Atrial Rate: 072 BPM P-R Int: 172 ms? QRS Dur: 074 ms QT Int: 364 ms ? ? ? P-R-T Axes: 045 002 032 degrees QTc Int: 398 ms ? Normal sinus rhythm Possible Left atrial enlargement Minimal voltage criteria for LVH, may be normal variant ( R in aVL ) Borderline ECG No previous ECGs available ? Electronically Signed By:REJI WILKS [facility] Dictated By: Reji Wilks DO Signed By: Electronically signed by Reji Wilks DO 04/06/23 1554 Radiology Impression Discussion of test interpretation with radiology: I have reviewed the radiologist's reading. Discharge Plan Discharge Clinical Impression: Chest pain Patient Disposition: Elopement Prescriptions: No Action rosuvastatin 5 mg tablet 5 mg PO DAILY Qty: 90 1RF cholecalciferol (vitamin D3) 1,250 mcg (50,000 unit) capsule 1,250 mcg PO QWEEK 90 Days Qty: 13 0RF fexofenadine [Joan Allergy] 180 mg tablet 180 mg PO DAILY Discharge Date/Time: 04/06/23 18:37
[2023-04-06 12:54] LABS: Hematocrit 40.2 % (37.0-47.0); Hemoglobin 14.4 g/dl (12.0-16.0); Mean Corpuscular HGB Conc 35.8 g/dl (31.0-35.0); Mean Corpuscular Hemoglobin 27.6 pg (27.0-33.0); Mean Corpuscular Volume 77.2 fL (80.0-98.0); Mean Platelet Volume 9.6 fL (9.4-12.3); Platelet Count 276 X10*3/uL (160-400); Red Blood Count 5.21 X10*6/uL (4.20-5.50); Red Cell Distribution Width 13.7 % (11.0-16.0); WBC ABN SCTR FOR CBC 1
[2023-04-06 13:09] LABS: COVID-19 Test Negative (Negative); IDNOW Serial# BCCEAD1C
[2023-04-06 13:13] LABS: Alanine Aminotransferase 24 U/L (0-31); Albumin Level 4.7 g/dL (3.5-5.0); Alkaline Phosphatase 52 U/L (39-117); Anion Gap 14 (12-20); Aspartate Amino Transferase 22 U/L (5-31); Bilirubin Total 0.4 mg/dL (0.0-1.0); Blood Urea Nitrogen 9 mg/dL (9-16); Carbon Dioxide 26 mmol/L (22-29); Chloride 103 mmol/L (96-108); Creatinine Clr Calc Pharmacy 60.3; Estimated Glomerular Filt Rate > 60; Glucose Random 114 mg/dL (60-115); Magnesium 2.2 mg/dL (1.6-2.6); Potassium 4.6 mmol/L (3.3-5.1); Sodium 138 mmol/L (135-145); Total Protein 8.2 g/dL (6.5-8.0)
[2023-04-06 13:16] LABS: Lymphocytes Percent Manual 39 % (20-40); Monocytes Percent Manual 7 % (2-11); Neutrophils Percent Manual 54 % (45-73)
[2023-04-06 13:17] LABS: Band Neutrophils Percent 0 % (3-5)
[2023-04-06 13:19] LABS: RBC Morphology NOTED
[2023-04-06 13:20] LABS: Hypochromasia 1+ (5-14) /OIF; Microcytosis 1+ (5-14) /OIF; Platelet Estimate NORMAL (NORMAL); Platelet Morphology Comment NORMAL
[2023-04-06 13:21] LABS: Monocytes Absolute Manual 0.5 X10*3/uL (0.1-1.2); Neutrophils Absolute Manual 4.2 X10*3/uL (2.0-8.3); White Blood Count 7.8 X10*3/uL (4.8-10.8)
[2023-04-06 13:26] LABS: Troponin-I High Sensitivity < 2.7 ng/L (<3.5-17.0)
== END 2023-04-06 18:37 | disposition left against medical advice (07) ==
PROVIDERS: Physician Assistant Medical; Emergency Provider Emergency Medicine
DX: R07.9 Chest pain, unspecified (principal); Z20.822 Contact with and (suspected) exposure to COVID-19; E78.2 Mixed hyperlipidemia; F17.200 Nicotine dependence, unspecified, uncomplicated; Z79.899 Other long term (current) drug therapy
CPT/HCPCS: 36415; 71046; 80053; 83735; 84484; 85007; 85027; 87635; 93005; 99283

== ENCOUNTER 2023-04-06 15:38 | Outpatient (REF) | payer OTHER, SELFPAY ==
[2023-04-06 17:42] LABS: Influenza A PCR NEGATIVE (Negative); Influenza B PCR NEGATIVE (Negative); Resp Syncy Virus RNA Qual PCR NEGATIVE (Negative); SARS COV2 PCR INHOUSE NEGATIVE (Negative)
== END 2023-04-06 15:39 | disposition home or self-care (01) ==
LOC: HO.LNP 15:38
PROVIDERS: Visit Provider Physician Assistant Medical
DX: R09.89 Other specified symptoms and signs involving the circulatory and respiratory systems (principal); R53.1 Weakness; Z20.822 Contact with and (suspected) exposure to COVID-19
CPT/HCPCS: 0241U

== ENCOUNTER 2023-04-17 09:48 | Outpatient (REF) | payer OTHER, SELFPAY ==
--- NOTE | ~2023-04-17 | MM_ITS ---
EXAMINATION: MM SCREENING DIGITAL BREAST TOMOSYNTHESIS, BILATERAL CLINICAL INFORMATION: Screening. Asymptomatic. COMPARISON: Mammography: There are no prior mammograms available for comparison. TECHNIQUE: Digital breast tomosynthesis is performed in both the craniocaudal and mediolateral oblique views along with computer-aided detection (CAD). Synthesized 2D images are generated from the tomosynthesis. FINDINGS: There are scattered areas of fibroglandular density (ACR BI-RADS breast composition Category b). There are no significant masses, abnormal calcifications, or other abnormalities. MM/MM tomosynthesis screening BI IMPRESSION: No mammographic evidence of malignancy. ASSESSMENT: BI-RADS BI-RADS 1 - Negative RECOMMENDATION: Routine annual mammography screening. 1 year F/U This examination should not preclude the clinical evaluation of a suspicious palpable abnormality. This patient's information was entered into a reminder system with a target due date for their next mammogram.
== END 2023-04-17 09:49 | disposition home or self-care (01) ==
LOC: HO.MAMMO 09:48
PROVIDERS: PCP Internal Medicine; Visit Provider Internal Medicine
DX: Z12.31 Encounter for screening mammogram for malignant neoplasm of breast (principal)
CPT/HCPCS: 77063; 77067

== ENCOUNTER → 2023-04-17 10:15 | Outpatient (BNV) | payer OTHER, SELFPAY | PROVIDERS: PCP Internal Medicine; Visit Provider Radiology Diagnostic Radiology | DX: Z12.31 Encounter for screening mammogram for malignant neoplasm of breast (principal) | CPT/HCPCS: 77063; 77067 ==

== ENCOUNTER 2023-07-18 11:15 | Outpatient (AMB) | payer OTHER, SELFPAY ==
--- NOTE | 2023-07-18 11:19 | AM.OFFWIN_ITS ---
Intake Vital Signs 07/18/23 11:23 Height 4 ft 11 in Weight 131 lb BMI 26.5 BP 122/78 Blood Pressure Location Rt brachial Position Sitting Pulse 81 Pulse Source Pulse Oximeter Temp 97.4 F Temp Source Temporal Artery Scan Pulse Oximetry (%) 97 Oxygen Delivery Method Room Air Intake Visit Reasons: EST/cough/congestion (lobby masked) Intake Note: Pt is here c/o chest congestion and bad cough for the past 4 days. Patient Tobacco Use Status: Current everyday Tobacco user Allergies No Known Allergies Allergy (Verified 07/18/23 11:51) Medication List - Last Reconciled 07/18/23 by Kam Null MD azithromycin take 500 mg today (day 1), then 250 mg for 4 days (days 2-5) PO cholecalciferol (vitamin D3) 1,250 mcg PO QWEEK 3 months fexofenadine (Joan Allergy) 180 mg PO DAILY rosuvastatin 5 mg PO DAILY Do you need a note to return to daycare/school/sports/work: No HPI EST/cough/congestion (lobby masked) HPI Details Patient presents for a sick visit. Reporting symptoms of sinus congestion, sore throat and difficulty swallowing. Low-grade fever. No family member is sick. No recent travel. Patient reports symptoms of malaise and fatigue. [facility] Medical History Cutaneous skin tags Environmental and seasonal allergies Exposure to herpes History of LEEP (loop electrosurgical excision procedure) of cervix complicating History of spontaneous History of uterine fibroid Hordeolum externum right upper eyelid Hx of ectopic Impaired fasting glucose Irritable bowel syndrome with diarrhea Mixed dyslipidemia Myopia Trigger finger, acquired Ureterolithiasis Vitamin D deficiency Surgical History History of partial hysterectomy Hx of colonoscopy Family History Brother Substance use disorder Mental health disorder Alcoholism Father Diabetes mellitus Hyperlipidemia Essential hypertension Mother Hyperlipidemia Essential hypertension Paternal Grandmother Diabetes mellitus Paternal Aunt Ovarian cancer Social History Housing: House Alcohol intake: unknown Patient Tobacco Use Status: Current everyday Tobacco user e-Cigarette/Vaping Use: Currently Using service: No Current occupational status: employed Cognitive needs: No Hearing needs: No Vision needs: Yes Female Reproductive History Menstrual Age of Menarche: 9 Physical Exam Vital Signs: Last Vital Signs Temp 97.4 F 07/18/23 11:23 Pulse 81 07/18/23 11:23 BP 122/78 07/18/23 11:23 Pulse Ox 97 07/18/23 11:23 Oxygen Delivery Method Room Air 07/18/23 11:23 BMI result Body Mass Index 26.5 Const General: cooperative and healthy appearing Nutritional Appearance: well nourished Orientation/consciousness: patient oriented x3 Limitations: no limitations HEENT Head: Yes normal to inspection Eyes General: appearance normal, both eyes and all related structures Neck Neck: Yes normal visual inspection Chest Chest palpation & inspection: normal palpation of entire chest wall Resp Effort & Inspection: normal respiratory effort Neuro General: patient oriented x3 Assessment & Plan Assessment & Plan (1) Upper respiratory tract infection: Code(s): J06.9 - Acute upper respiratory infection, unspecified Plan: Antibiotics ordered. Increase fluid intake. Tylenol for aches and pains. If symptoms worsen, follow-up here for a recheck. Orders: Orders SARS-CoV2/FLU/RSV Today R43.9 - Unspecified disturbances of smell and taste Medications: New azithromycin take 500 mg today (day 1), then 250 mg for 4 days (days 2-5) PO 6 tabs 0RF Coding Level of Care Code Est Pt Level 3 (50615) Diagnoses Upper respiratory tract infection J06.9
[2023-07-18 11:23] VITALS: BP 122/78; PULSE 81; TEMP 36.3; O2SAT 97; BMI 26.5
== END 2023-07-18 13:03 | disposition home or self-care (01) ==
PROVIDERS: PCP Internal Medicine; Visit Provider Internal Medicine
DX: J06.9 Acute upper respiratory infection, unspecified (principal)
CPT/HCPCS: 99213

== ENCOUNTER 2023-07-18 13:26 | Outpatient (REF) | payer OTHER, SELFPAY ==
[2023-07-18 14:26] LABS: Influenza A PCR NEGATIVE (Negative); Influenza B PCR NEGATIVE (Negative); Resp Syncy Virus RNA Qual PCR NEGATIVE (Negative); SARS COV2 PCR INHOUSE NEGATIVE (Negative)
== END 2023-07-18 13:27 | disposition home or self-care (01) ==
LOC: HO.LNP 13:26
PROVIDERS: Visit Provider Internal Medicine
DX: Z11.52 Encounter for screening for COVID-19 (principal); Z20.822 Contact with and (suspected) exposure to COVID-19; R43.9 Unspecified disturbances of smell and taste
CPT/HCPCS: 0241U

== ENCOUNTER 2024-01-31 09:25 | Outpatient (AMB) | payer OTHER, SELFPAY ==
[2024-01-31 09:25] VITALS: BP 128/86; PULSE 82; TEMP 36.8; O2SAT 98; BMI 27.5
--- NOTE | 2024-01-31 09:25 | AM.OFFWIN_ITS ---
Intake Vital Signs 01/31/24 09:25 Height 4 ft 11 in Weight 136 lb BMI 27.5 BP 128/86 Blood Pressure Location Rt brachial Position Sitting Pulse 82 Pulse Source Pulse Oximeter Temp 98.3 F Temp Source Oral Pulse Oximetry (%) 98 Oxygen Delivery Method Room Air Intake Visit Reasons: EP unable to open eyes/pain/?Allergies Intake Note: pt is here today for unable to open eyes pain allergies started this AM. Took Joan this morning Patient Tobacco Use Status: Current everyday Tobacco user Allergies No Known Allergies Allergy (Verified 01/31/24 09:42) Do you need a note to return to daycare/school/sports/work: Yes HPI HPI Comments History of Present Illness Details 53 y/o female patient who presents to [facility] with c/o bilateral eye pain and light sensitivity. Reports woke-up this morning unable to open eyes due to pain. Pt wears contact lens and currently she is wearing them. Reports feeling Sand inside eyes, dryness and touch/light sensitivity. Reports wearing a new pair of eye contacts (opened new Box 01/18), she does wear the monthly kind. Denies changing any cosmetic products. Denies chronic eye diseases. She does keep up with routine eye examinations. [facility] Medical History Cutaneous skin tags Environmental and seasonal allergies Exposure to herpes History of LEEP (loop electrosurgical excision procedure) of cervix complicating History of spontaneous History of uterine fibroid Hordeolum externum right upper eyelid Hx of ectopic Impaired fasting glucose Irritable bowel syndrome with diarrhea Mixed dyslipidemia Myopia Trigger finger, acquired Ureterolithiasis Vitamin D deficiency Surgical History History of partial hysterectomy Hx of colonoscopy Family History Brother Substance use disorder Mental health disorder Alcoholism Father Diabetes mellitus Hyperlipidemia Essential hypertension Mother Hyperlipidemia Essential hypertension Paternal Grandmother Diabetes mellitus Paternal Aunt Ovarian cancer Social History Housing: House Alcohol intake: unknown Patient Tobacco Use Status: Current everyday Tobacco user e-Cigarette/Vaping Use: Currently Using service: No Current occupational status: employed Cognitive needs: No Hearing needs: No Vision needs: Yes Female Reproductive History Menstrual Age of Menarche: 9 Review of Systems Const All systems reviewed & are unremarkable except as noted in HPI and below Physical Exam Vital Signs: Last Vital Signs Temp 98.3 F 01/31/24 09:25 Pulse 82 01/31/24 09:25 BP 128/86 01/31/24 09:25 Pulse Ox 98 01/31/24 09:25 Oxygen Delivery Method Room Air 01/31/24 09:25 BMI result Body Mass Index 27.5 Const General: comfortable and no acute distress Nutritional Appearance: overweight Orientation/consciousness: patient oriented x3 Eyes Eyelids: Yes eyelids normal Conjunctivae: conjunctival abnormal bilateral conjunctival injection; Negative for conjunctival icterus and without chemosis Sclerae: scleral abnormal bilateral scleral injection and scleral tenderness; without foreign bodies and without hemorrhages Pupils: Equal, round and reactive pupils present Neuro General: patient oriented x3 Cranial nerves: Yes Equal, round and reactive pupils present Assessment & Plan Assessment & Plan (1) Allergic conjunctivitis: Code(s): H10.10 - Acute atopic conjunctivitis, unspecified eye Qualifiers: Laterality: bilateral Qualified Code(s): H10.13 - Acute atopic conjunctivitis, bilateral Plan: - Call your doctor for an Appointment. - Take Cetirizine 2 Tabs in AM and 2 Tabs in PM for seven days - Do not wear contact lens for the next 7 days or until symptoms resolve - No mascara or eye make-up - Maintain a good eye hygiene - Wash hands before touching eyes Medications: New cetirizine (Zyrtec) TAKE DIRECTED BY MD 10 mg PO DAILY PRN 60 tabs 0RF allergy symptoms H10.13 - Acute atopic conjunctivitis, bilateral ciprofloxacin-hydrocortisone 0.2-1 % 3 drps otic (ear) left BID 10 mL 0RF 7 days H10.13 - Acute atopic conjunctivitis, bilateral ketotifen fumarate 0.025%(0.035%) (Zaditor) do not exceed 2 doses in a 24 hour period 1 drp ophthalmic (eye) Q8H 5 mL 0RF Dry eyes H10.13 - Acute atopic conjunctivitis, bilateral Coding Level of Care Code Est Pt Level 3 (11164) Diagnoses Allergic conjunctivitis of both eyes H10.13 Laterality: bilateral Time Spent (min) 15
== END 2024-01-31 10:57 | disposition home or self-care (01) ==
PROVIDERS: PCP Internal Medicine; Visit Provider Nurse Practitioner Family
DX: H10.13 Acute atopic conjunctivitis, bilateral (principal)
CPT/HCPCS: 99213

== ENCOUNTER 2024-07-21 09:47 | Outpatient (AMB) | payer OTHER, SELFPAY ==
[2024-07-21 10:51] VITALS: BP 110/70; PULSE 73; TEMP 36.8; O2SAT 98
--- NOTE | 2024-07-21 10:51 | AM.OFFWIN_ITS ---
Intake Vital Signs 07/21/24 10:51 Weight 132 lb BP 110/70 Blood Pressure Location Rt brachial Position Sitting Pulse 73 Pulse Source Pulse Oximeter Temp 98.3 F Temp Source Oral Pulse Oximetry (%) 98 Oxygen Delivery Method Room Air Intake Visit Reasons: EP no voice, chest cold, pain, yellow phlem Intake Note: Patient here for cough, thick yellow mucus, and chest congestion that started sunday. Patient Tobacco Use Status: Current everyday Tobacco user Allergies No Known Allergies Allergy (Verified 07/21/24 10:54) Do you need a note to return to daycare/school/sports/work: Yes HPI EP no voice, chest cold, pain, yellow phlem HPI Details This note is constructed using voice recognition software. While every effort has been made to ensure accuracy, senior software quality engineer errors may have been included. The patient is a 54 year old female who presents to the clinic today with cough, chest and sinus congestion, and yellow productive cough. She denies history of asthma, does currently smoke cigarettes. She denies dyspnea. [facility] Medical History Cutaneous skin tags Environmental and seasonal allergies Exposure to herpes History of LEEP (loop electrosurgical excision procedure) of cervix complicating History of spontaneous History of uterine fibroid Hordeolum externum right upper eyelid Hx of ectopic Impaired fasting glucose Irritable bowel syndrome with diarrhea Mixed dyslipidemia Myopia Trigger finger, acquired Ureterolithiasis Vitamin D deficiency Surgical History History of partial hysterectomy Hx of colonoscopy Family History Brother Substance use disorder Mental health disorder Alcoholism Father Diabetes mellitus Hyperlipidemia Essential hypertension Mother Hyperlipidemia Essential hypertension Paternal Grandmother Diabetes mellitus Paternal Aunt Ovarian cancer Social History Housing: House Alcohol intake: unknown Patient Tobacco Use Status: Current everyday Tobacco user e-Cigarette/Vaping Use: Currently Using service: No Current occupational status: employed Cognitive needs: No Hearing needs: No Vision needs: Yes Female Reproductive History Menstrual Age of Menarche: 9 Review of Systems Const All systems reviewed & are unremarkable except as noted in HPI and below Physical Exam Vital Signs: Last Vital Signs Temp 98.3 F 07/21/24 10:51 Pulse 73 07/21/24 10:51 BP 110/70 07/21/24 10:51 Pulse Ox 98 07/21/24 10:51 Oxygen Delivery Method Room Air 07/21/24 10:51 Const General: cooperative, healthy appearing, comfortable and no acute distress Orientation/consciousness: patient oriented x3 Limitations: no limitations HEENT Head: Yes normal to inspection Ears: hearing grossly normal bilaterally, external ears normal and TM's normal bilaterally General nose exam: Normal external nose present, Normal nares present and No nasal discharge present Face and sinus: Yes normal facial exam and Yes sinus tenderness (maxillary) Mouth: Normal oral and palatal mucosa present and moist mucous membranes Throat: Yes tonsils normal, Yes uvula midline and Yes posterior oropharynx abnormal (Erythema) Eyes General: appearance normal, both eyes and all related structures Neck Neck: Yes normal visual inspection Resp Effort & Inspection: normal respiratory effort, able to speak in complete sentences, Actively coughing, no respiratory distress, not tachypneic, no tripod positioning and no use of accessory muscles Auscultation: clear to auscultation bilaterally Cardio Jugular venous distension: no JVD Rate: regular rate Rhythm: regular rhythm Heart sounds: S1 normal heart sound present, S2 normal heart sound present, no click, no gallops, no murmurs and no rubs Skin General skin exam: no rashes or lesions noted, elasticity normal and turgor normal Neuro General: patient oriented x3 Extrem General: Yes normal to inspection and Yes no clubbing, cyanosis or edema Assessment & Plan Assessment & Plan (1) Sinusitis: Code(s): J32.9 - Chronic sinusitis, unspecified Qualifiers: Sinusitis location: maxillary Chronicity: acute Recurrence: non- recurrent Qualified Code(s): J01.00 - Acute maxillary sinusitis, unspecified Plan: Supportive measures encouraged and reviewed. Advised consideration of sinus rinse if needed. Antibiotic sent to requested pharmacy, advised patient to take antibiotics until completed and not to stop if feeling better, unless the patient has side effects. Advised patient to follow up with primary care provider with worsening or failure to resolve. Smoking cessation advised. Viral swab obtained to rule out Covid, Influenza, and RSV based on symptoms. Advised mask wearing while symptomatic and quarantine per current CDC guidelin es. Reviewed at home support methods including hydration, humidification, vix vapor rub, sinus rinse, and otc treatment options. Advised follow up with worsening symptoms such as dyspnea at rest, which would require emergent evaluation. Plan See above for full details and plan. Orders: Orders SARS-CoV2/FLU/RSV Today J06.9 - Acute upper respiratory infection, unspecified Medications: New amoxicillin-pot clavulanate 875-125 mg 1 tab PO BID 7 days 14 tabs 0RF fluconazole 150 mg PO ONCE 1 day 1 tab 0RF Coding Level of Care Code Est Pt Level 3 (39194) Diagnoses Acute non-recurrent maxillary sinusitis J01.00 Sinusitis location: maxillary Chronicity: acute Recurrence: non-recurrent
== END 2024-07-21 11:31 | disposition home or self-care (01) ==
PROVIDERS: PCP Internal Medicine; Visit Provider Registered Nurse
DX: J01.00 Acute maxillary sinusitis, unspecified (principal)

== ENCOUNTER 2024-07-21 09:47 | Outpatient (REF) | payer OTHER, SELFPAY ==
[2024-07-21 19:50] LABS: Influenza A PCR NEGATIVE (Negative); Influenza B PCR NEGATIVE (Negative); Resp Syncy Virus RNA Qual PCR NEGATIVE (Negative); SARS COV2 PCR INHOUSE NEGATIVE (Negative)
== END 2024-07-21 09:48 | disposition home or self-care (01) ==
LOC: HO.LNP 09:47
PROVIDERS: PCP Internal Medicine; Visit Provider Registered Nurse
DX: J06.9 Acute upper respiratory infection, unspecified (principal); J01.00 Acute maxillary sinusitis, unspecified
CPT/HCPCS: 0241U; 99212